=== PATIENT | male | born 1940 ===

== ENCOUNTER 2022-06-03 09:00 | Outpatient (RCR) | payer MEDICARE | END 2022-06-04 | disposition home or self-care (01) | LOC: WSST | DX: R13.10 Dysphagia, unspecified (principal) ==

== ENCOUNTER → 2022-06-03 | Outpatient (CLI) | payer MEDICARE | LOC: COL.RAD 08:21 | DX: R13.10 Dysphagia, unspecified (principal); K22.89 Other specified disease of esophagus; J32.9 Chronic sinusitis, unspecified ==

== ENCOUNTER → 2022-12-24 | Outpatient (CLI) | payer MEDICARE | LOC: COL.RAD 07:30 | DX: I67.82 Cerebral ischemia (principal); J32.0 Chronic maxillary sinusitis; J32.2 Chronic ethmoidal sinusitis; G31.9 Degenerative disease of nervous system, unspecified; M48.02 Spinal stenosis, cervical region ==